=== PATIENT | female | born 1985 | race Caucasian/White ===

== ENCOUNTER 2024-05-24 11:13 | Emergency (ER) | payer OTHER ==
[~2024-05-24] VITALS: Ht 157.5 cm; Wt 65.0 kg
[2024-05-24 11:15] VITALS: O2SAT 99
[2024-05-24 11:34] LABS: BASOPHILS % 0.7 % (0.0-2.0); EOSINOPHILS % 1.3 % (0.0-5.0); HEMATOCRIT. 28.1 % (36.0-48.0); HEMOGLOBIN. 8.6 g/dL (12.0-16.0); LYMPHOCYTES % 26.7 % (20.0-50.0); MEAN CORPUSCULAR HEMOGLOBIN 18.7 pg (28.0-32.0); MEAN CORPUSCULAR HGB CONC 30.5 g/dL (31.0-37.0); MEAN CORPUSCULAR VOLUME 61.2 fL (81.0-99.0); NEUTROPHILS % 65.3 % (40.0-76.0); PLATELET 408 x1000/uL (130-400); RED BLOOD CELL COUNT 4.59 mill/uL (4.2-5.4); RED CELL DISTRIBUTION WIDTH 20.6 % (11.6-14.6); WHITE BLOOD COUNT 7.2 x1000/uL (4.5-11.0)
[2024-05-24 11:35] LABS: ADD RBC MORPHOLOGY YES; DIFFERENTIAL COMMENT 1
[2024-05-24 11:41] LABS: CHLORIDE 110 mEq/L (98-107); SODIUM 141 mEq/L (136-145)
[2024-05-24 11:42] LABS: CALCIUM 8.9 mg/dL (8.7-10.4); CARBON DIOXIDE 24 mEq/L (21-32)
[2024-05-24 11:42] LABS: CLARITY URINE CLEAR (CLEAR); COLOR URINE YELLOW (YELLOW); GLUCOSE URINE NEGATIVE (NEGATIVE); KETONES URINE NEGATIVE (NEGATIVE); LEUKOCYTE ESTERASE URINE TRACE (NEGATIVE); NITRITE URINE POSITIVE (NEGATIVE); OCCULT BLOOD URINE NEGATIVE (NEGATIVE); PH URINE 6.5 (4.5-8.0); PROTEIN URINE NEGATIVE (NEGATIVE)
[2024-05-24 11:47] LABS: CREATININE 0.7 mg/dL (0.6-1.0); GLUCOSE 96 mg/dL (70-105); UREA NITROGEN BLOOD 6 mg/dL (9-23)
[2024-05-24 11:49] LABS: ALANINE AMINOTRANSFERASE 22 IU/L (10-49); ALBUMIN 4.5 g/dL (3.2-4.8); ASPARTATE AMINOTRANSFERASE 23 IU/L (<34)
[2024-05-24 11:50] LABS: BILIRUBIN TOTAL 0.7 mg/dL (0.1-1.0)
[2024-05-24 11:51] LABS: HCG SCREEN NEGATIVE
[2024-05-24 13:11] LABS: MUCUS URINE 3+ /lpf (< = 2+); SQUAMOUS EPITHELIAL CELL URINE 3+ /lpf (RARE/1+)
[2024-05-24 13:13] LABS: BACTERIA URINE 4+; RBC URINE 0-2 /hpf (0-2)
[2024-05-24 13:26] LABS: ANISOCYTOSIS 2+; PLATELET ESTIMATE SLIGHTLY INCREASED
[2024-05-24 13:27] LABS: HYPOCHROMASIA 1+; MICROCYTOSIS 4+
[2024-05-24] MEDS: NITROFURANTOIN 100MG M/M CAPSULE PO ONE (13:54)
[2024-05-24 14:30] VITALS: BP 123/75; PULSE 91; RESP 17; TEMP 98.5
[2024-05-24] MEDS ORDERED: NITR100C MT (14:42)
[2024-05-24] MEDS ORDERED: PHEN-910 MT (14:42)
== END 2024-05-24 15:11 | disposition home or self-care (01) ==
LOC: ER 11:51
DX: N39.0 Urinary tract infection, site not specified (principal); R10.2 Pelvic and perineal pain; J45.909 Unspecified asthma, uncomplicated; Z98.890 Other specified postprocedural states
CPT/HCPCS: 36415; 74176; 80053; 81003; 81025; 84703; 85025; 93005; 99284